=== PATIENT | female | born 1965 | race Caucasian/White ===

== ENCOUNTER 2021-09-23 03:55 | Emergency (ER) | payer BC, MEDICARE ==
[~2021-09-23] VITALS: Ht 152 cm; Wt 106.0 kg
--- OUTSIDE RECORDS SUMMARY | 2021-09-23 03:58 | XMS REPORT | Clinical Summary ---
Author Author [facility] Organization [facility] Address Unknown Phone Unavailable Care Team Providers Care Plant Taxonomist Name Role Phone Nilton Gutierrez DO PCP Allergies Not on File Medications Not on file Active Problems Problem Noted Date Syncope 01/10/2018 Social History Date Tobacco Use Types Packs/Day Years Used Never Assessed Sex Assigned at Date Recorded Not on file Last Filed Vital Signs Not on file Plan of Treatment Health Maintenance Due Date Last Done Comments Td/Tdap# 1965 Cervical Cancer Screening 1986 via Pap Smear Zoster Vaccine# (1 of 2) 2015 Influenza Vaccine (#1) 2021 Pneumococcal Vaccine: Aged Out No longer eligib le based on patient's age to Pediatrics (0 to 5 Years) complete this topic and At-Risk Patients (6 to 64 Years) Results Not on filefrom Last 3 Months Insurance Type Payer Benefit Subscriber ID Effective Phone Address Plan / Dates Group MEDICARE REPLACEMENT PLAN [facility] [id number] 2016-P [address] MED[address]ARE [id number] [place] [address] [place] [id number] 2017- [phone] [address] MEDICAID Present [address] [place] [id number] Eloise Delacruz Personal/F Self 1965 [address] [facility] [facility] (Home[facility] [place], [place] [address] Eloise Delacruz Personal/F Self 1965 [address] [facility] (Home) [place], [place] [address] NubiaEloise Archer Personal/F Self [address] [facility] (Home) [place], [place] [address] Advance Directives For more information, please contact: [phone] Patient Spouter Explanation Type Date Recorded Advance Directives and Living Will Power of 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
--- OUTSIDE RECORDS SUMMARY | 2021-09-23 03:58 | XMS REPORT | Clinical Summary ---
Author Author [facility] Organization [facility] Address Unknown Phone Unavailable Care Team Providers Care Territory Sales Executive Name Role Phone None, Pcp MD PCP Unavailable Source Comments [facility] (Labor and Delivery) documents do not appear in the [facility] Allergies Comments Active Allergy Reactions Severity Noted Date Per Pt report [place] Unknown 11/20/2017 Per Pt report Sugar Unknown 11/20/2017 Medications * Please verify current medications with patient. End Date Status Medication Sig Dispensed Refills Start Date Active amoxicillin - Take 1 tablet 14 tablet 0 clavulanate, 875-125 by mouth two 8 mg/tab, (AUGMENTIN) times a day 875-125 mg tablet Active Sitagliptin-Metformin Take 1 tablet 0 (JANUMET) 50-1,000 mg by mouth tablet Active amitriptyline (ELAVIL) 25 Take 25 mg by 0 mg tablet mouth at bedtime Active sertraline (ZOLOFT) 100 Take 100 mg 0 mg tablet by mouth once a day Active vitamin D3-folic acid once a day 0 5,000 unit- 1 mg tab Active zonisamide (ZONEGRAN) 100 Take 100 mg 0 mg capsule by mouth Active simvastatin (ZOCOR) 80 mg Take 80 mg by 0 tablet mouth at bedtime Active Fenofibrate 150 mg cap Take 145 mg 0 by mouth once a day Active verapamil (VERELAN) 180 Take 180 mg 0 mg CR capsule by mouth once a day Active glipiZIDE (GLUCOTROL) 5 Take 5 mg by 0 mg tablet mouth Active insulin glargine (LANTUS) Inject 80 0 100 unit/mL injection Units just under the skin Active montelukast (SINGULAIR) Take 10 mg by 0 10 mg tablet mouth once a day Active ascorbic acid, vitamin C, Take 500 mg 0 (VITAMIN C) 500 mg tablet by mouth Active Problems Not on file Immunizations Name Administration Dates Next Due TDAP VACCINE =>7YO IM 11/20/2017 ADSORBED Social History Date Tobacco Use Types Packs/Day Years Used Never Smoker Smokeless Tobacco: Never Used Comments Alcohol Use Standard Drinks/Week No 0 (1 standard drink = 0.6 o z pure alcohol) Sex Assigned at Date Recorded Not on file Last Filed Vital Signs Reading Time Taken Comments Vital Sign 132/79 11/20/2017 4:46 AM MST Blood Pressure 97 11/20/2017 4:46 AM MST Pulse 36.3 C (97.4 F) 11/20/2017 4:23 AM MST Temperature 12 11/20/2017 4:46 AM MST Respiratory Rate 92% 11/20/2017 4:46 AM MST Oxygen Saturation - - Inhaled Oxygen Concentration 103.9 kg (229 lb) 11/20/2017 4:23 AM MST Weight 154.9 cm (5' 1") 11/20/2017 4:23 AM MST Height 43.27 11/20/2017 4:23 AM MST Body Mass Index Plan of Treatment Health Maintenance Due Date Last Done Comments CT Colonography 1965 Cervical Cancer Screening 1965 Colonoscopy 1965 Colorectal Cancer 1965 Screening DNA-based stool test 1965 (Cologuard) HPV/Cotest 1965 Mammogram 1965 Pap Smear 1965 Sigmoidoscopy 1965 gFOBT or FIT 1965 COVID-19 Vaccine (1) 1977 Influenza Vaccine (#1) 2021 Pneumococcal Vaccine: 65+ 2030 Years (1 of 1 - PPSV23) HPV Vaccine Aged Out No longer eligible based on patient's age to complete this topic Hepatitis A Vaccine Aged Out No longer eligible based on patient's age to complete this topic Hepatitis B Vaccine Aged Out No longer eligible based on patient's age to complete this topic Hib Vaccine Aged Out No longer eligible based on patient's age to complete this topic IPV Vaccine Aged Out No longer eligible based on patient's age to complete this topic Meningococcal Vaccine Aged Out No longer eligib le based on patient's age to (MCV4) complete this topic Pneumococcal Vaccine: Aged Out No longer eligib le based on patient's age to Pediatrics (0 to 5 Years) complete this topic and At-Risk Patients (6 to 64 Years) Rotavirus Vaccine Aged Out No longer eligible based on patient's age to complete this topic Results Not on filefrom Last 3 Months Insurance Type Payer Benefit Subscriber ID Effective Phone Address Plan / Dates Group HMO [place] [id number] Effective [phone] ATTN: HMO for all ANTHEM dates BLUE CROSS AND BLUE SHIELD [address] [place] [address] [place] [id number] Effective [phone] [address] [place] for [place] [address] [place] [phone] Care Teams Start Date End Date Territory Sales Executive Relationship Specialty 11/20/17 None, Pcp, MD PCP - General Other or Unknown Specialty
[2021-09-23] MEDS ORDERED: NS IV 1000 ML 1,000 ML IV SCH (04:45)
[2021-09-23] MEDS ORDERED: ACETAMINOPHEN 325 MG TABLET PO ONE (04:45)
--- NOTE | 2021-09-23 04:45 | ED General ---
General Chief Complaint: COVID19 Suspect/Confirmed Stated Complaint: FEVER/TROUBLE BREATHING Nursing Triage Note: Pt c/o fever, shortness of breath, and "sweaty" x few days. Pt took 800mg of Advil PO at 0200 today. Pt is speaking in full sentances. Vss. Source of Information: Patient History of Present Illness Date Seen by Provider: Sep 23, 2021 Time Seen by Provider: 03:57 Initial Comments 56-year-old female presenting with complaints of fever and shortness of breath with cough. She has not felt well for the last several days. She states that she usually does not get a fever but she has since yesterday. She has been having sinus pressure on the right side and having a headache. She complains of feeling like she has sinus infection. She did vomit her medications on Wednesday night. She has a history of being a diabetic. She states that she had a negative Covid test on September 06 and has the paperwork from the walk-in clinic for that test. She has had some similar symptoms since around 04 September however in the last 2 or 3 days she has felt worse and is having the low-grade fever. Severity: Moderate Associated Systoms: No Chest Pain; Cough; No Diaphoresis; Fever/Chills, Headaches (Right-sided from the maxillary sinus back in her head), Loss of Appetite, Malaise, Nausea/Vomiting (Wednesday night x1); No Rash, No Seizure; Shortness of Air; No Syncope; Weakness Allergies and Home Medications Allergies Coded Allergies: No Known Drug Allergies (Unverified , 09/23/21) Patient Home Medication List Home Medication List Reviewed: Yes Azithromycin (Azithromycin) 500 Mg Tablet, 500 MG PO DAILY Prescribed by: JENNIFER FLOREZ on 09/23/21 0521 Fluconazole (Diflucan) 150 Mg Tablet, 150 MG PO ONCE Prescribed by: JENNIFER FLOREZ on 09/23/21 0606 Review of Systems Review of Systems Constitutional: chills; No diaphoresis; fever, weakness (general) EENTM: nose congestion, other (right maxillary sinus pressure/pain radiating back in her head); No ear discharge, No ear pain, No blurred vision, No epistaxis Respiratory: cough; No hemoptysis, No phlegm; short of breath; No stridor; wheezing Cardiovascular: No chest pain, No palpitations Gastrointestinal: see HPI Genitourinary: No dysuria, No frequency Musculoskeletal: no symptoms reported Skin: No rash Psychiatric/Neurological: Anxiety, Headache (right sided from maxillary sinus back) Past Fslqsrf-Wfovns-Sgqojo Hx Past Medical History Surgery/Hospitalization HX: Covid 19 infection with GI symptoms, Diabetes insulin dependent, hypertension Physical Exam Vital Signs Vital Signs - First Documented 09/23/21 04:34 Temp 37.7 Pulse 123 Resp 22 B/P (MAP) 129/84 (99) Pulse Ox 95 O2 Delivery Room Air Capillary Refill : Less Than 3 Seconds Height, Weight, BMI Height: '" Weight: lbs. oz. kg; 45.00 BMI Method: General Appearance: Anxious, Obese HEENT: PERRL/EOMI, Pharynx Normal Neck: Full Range of Motion, Normal Inspection, Non Tender, Supple Respiratory: Chest Non Tender, Lungs Clear, No Accessory Muscle Use, No Respiratory Distress, Decreased Breath Sounds Cardiovascular: No Murmur, Normal Peripheral Pulses, Tachycardia Gastrointestinal: Normal Bowel Sounds, No Pulsatile Mass, Non Tender, Soft Rectal: Deferred Extremity: Normal Capillary Refill, Normal Inspection, No Calf Tenderness, Pedal Edema (trace to 1+ BLE) Neurologic/Psychiatric: Alert, Oriented x3, workers compensation claims adjuster II-XII Norm as Tested Skin: Normal Color, Warm/Dry Focused Exam Lactate Level 09/23/21 04:20: Lactic Acid Level 1.25 Lactic Acid Level Laboratory Tests Test 09/23/21 04:20 Lactic Acid Level 1.25 MMOL/L (0.50-2.00) Progress/Results/Core Measures Suspected Sepsis SIRS Temperature: Pulse: 123 Respiratory Rate: 22 Laboratory Tests 09/23/21 04:20: White Blood Count 10.5 Blood Pressure 129 /84 Mean: 99 09/23/21 04:20: Lactic Acid Level 1.25 Laboratory Tests 09/23/21 04:20: Creatinine 1.14, INR Comment 1.0, Platelet Count 202, Total Bilirubin 0.3 Results/Orders Lab Results Laboratory Tests Test 09/23/21 04:10 09/23/21 04:20 09/23/21 04:23 09/23/21 04:31 Range/Units Influenza Type A Antigen NEGATIVE NEGATIVE Influenza Type B Antigen NEGATIVE NEGATIVE White Blood Count 10.5 4.3-11.0 10^3/uL Red Blood Count 3.69 L 3.80-5.11 10^6/uL Hemoglobin 10.4 L 11.5-16.0 g/dL Hematocrit 32 L 35-52 % Mean Corpuscular Volume 88 80-99 fL Mean Corpuscular Hemoglobin 28 25-34 pg Mean Corpuscular Hemoglobin Concent 32 32-36 g/dL Red Cell Distribution Width 13.8 10.0-14.5 % Platelet Count 202 130-400 10^3/uL Mean Platelet Volume 10.6 9.0-12.2 fL Immature Granulocyte % (Auto) 0 % Neutrophils (%) (Auto) 82 H 42-75 % Lymphocytes (%) (Auto) 10 L 12-44 % Monocytes (%) (Auto) 7 0-12 % Eosinophils (%) (Auto) 1 0-10 % Basophils (%) (Auto) 0 0-10 % Neutrophils # (Auto) 8.6 H 1.8-7.8 X 10^3 Lymphocytes # (Auto) 1.0 1.0-4.0 X 10^3 Monocytes # (Auto) 0.7 0.0-1.0 X 10^3 Eosinophils # (Auto) 0.1 0.0-0.3 10^3/uL Basophils # (Auto) 0.0 0.0-0.1 10^3/uL Immature Granulocyte # (Auto) 0.0 0.0-0.1 10^3/uL Neutrophils % (Manual) % Prothrombin Time 13.2 12.2-14.7 SEC INR Comment 1.0 0.8-1.4 Activated Partial Thromboplast Time 27 24-35 SEC D-Dimer 0.43 0.00-0.49 UG/ML Sodium Level 135 135-145 MMOL/L Potassium Level 4.2 3.6-5.0 MMOL/L Chloride Level 99 98-107 MMOL/L Carbon Dioxide Level 20 L 21-32 MMOL/L Anion Gap 16 H 5-14 MMOL/L Blood Urea Nitrogen 18 7-18 MG/DL Creatinine 1.14 0.60-1.30 MG/DL Estimat Glomerular Filtration Rate 49 BUN/Creatinine Ratio 16 Glucose Level 275 H 70-105 MG/DL Lactic Acid Level 1.25 0.50-2.00 MMOL/L Calcium Level 9.5 8.5-10.1 MG/DL Corrected Calcium 9.3 8.5-10.1 MG/DL Total Bilirubin 0.3 0.1-1.0 MG/DL Aspartate Amino Transf (AST/SGOT) 12 5-34 U/L Alanine Aminotransferase (ALT/SGPT) 11 0-55 U/L Alkaline Phosphatase 75 40-136 U/L Troponin I < 0.30 <0.30 NG/ML C-Reactive Protein 4.76 H <0.50 MG/DL Total Protein 7.5 6.4-8.2 GM/DL Albumin 4.2 3.2-4.5 GM/DL Smear Scan Glucometer 243 H 70-110 MG/DL Blood Gas Puncture Site RT. RADIAL Blood Gas Patient Temperature 37.0 Arterial Blood pH 7.41 7.37-7.43 Arterial Blood Partial Pressure CO2 39 35-45 MMHG Arterial Blood Partial Pressure O2 70 L 79-93 MMHG Arterial Blood HCO3 25 23-27 MMOL/L Arterial Blood Total CO2 25.9 21.0-31.0 MMOL/L Arterial Blood Oxygen Saturation 94 94-100 % Arterial Blood Base Excess 0.1 -2.5-2.5 MMOL/L Tim Test YES-POS Blood Gas Ventilator Setting NO Blood Gas Inspired Oxygen ROOM AIR My Orders Orders - JENNIFER FLOREZ MD Monitor-Rhythm Ecg Trace Only (09/23/21 04:33) Ed Iv/Invasive Line Start (09/23/21 04:33) Cbc With Automated Diff (09/23/21 04:33) Comprehensive Metabolic Panel (09/23/21 04:33) Crp Fs (09/23/21 04:33) Troponin I Fs (09/23/21 04:33) Protime With Inr (09/23/21 04:33) Partial Thromboplastin Time (09/23/21 04:33) Ekg Tracing (09/23/21 04:33) Arterial Blood Gas (09/23/21 04:33) Ns Iv 1000 Ml (Sodium Chloride 0.9%) (09/23/21 04:45) Acetaminophen Tablet/Caplet (Tylenol T (09/23/21 04:45) Blood Culture (09/23/21 04:33) Chest 1 View Ap/Pa Only (09/23/21 04:33) Ct Head/Maxillofacial Wo (09/23/21 04:33) Influenza A & B Antigens (09/23/21 04:33) Covid 19 Inhouse Test (09/23/21 04:33) Lactic Acid Analyzer (09/23/21 04:33) Fibrin Degradation Products (09/23/21 04:33) Manual Differential (09/23/21 04:20) Medications Given in ED Current Medications Medications Dose Ordered Sig/Francia Route Start Time Stop Time Status Last Admin Dose Admin Acetaminophen 650 mg ONCE ONCE PO 09/23/21 04:45 09/23/21 04:46 DC 09/23/21 04:49 650 MG Vital Signs/I&O 09/23/21 09/23/21 04:34 06:10 Temp 37.7 37.0 Pulse 123 79 Resp 22 15 B/P (MAP) 129/84 (99) 132/70 Pulse Ox 95 96 O2 Delivery Room Air Room Air Capillary Refill : Less Than 3 Seconds Blood Pressure Mean: 99 Progress Note #1: Progress Note With her tachycardic and having a low-grade fever as well as complaint of sinus and upper respiratory infection will need to obtain blood work including blood cultures and lactic acid. Ordered influenza and Covid swab. Check basic labs including cardiac enzymes. CT scan of her head and sinuses to look for infection. Give IV fluids for hydration to help with her tachycardia. Acetaminophen to help with her low-grade fever. Progress Note #2: Progress Note Labs showed no significant elevation of her white blood cell count. Her chemistry panel showed the elevated glucose but her electrolytes otherwise appeared stable. Her lactic acid was not elevated at 1.25. Her influenza swab was negative. Her CT scan of the head and sinuses showed right ethmoid sinus mucosal thickening for some sinusitis. Her chest x-ray did not show any definite infiltrate. Patient was having improved heart rate and symptomatically felt better as she was receiving treatment in the ED. Counseled on results and findings and advised that we would treat for sinusitis with Zithromax and have her take possibly extra insulin if needed for elevated sugar while she was fighting the infection. Have her check with her regular provider over the phone about this. Counseled to quarantine until she had results on her Covid swab. This should be back later within the next 12 to 24 hours. Counseled on follow-up and return precautions. ECG Initial ECG Impression Date: Sep 23, 2021 Initial ECG Impression Time: 04:42 Initial ECG Rate: 104 Initial ECG Rhythm: S.Tach Initial ECG Comparisson: No Previous ECG Available Comment Sinus tachycardia with a heart rate of 104 bpm. MI interval 146 ms. QT interval 356 ms with a QTc interval 469 ms. There is no acute ST elevation. There is no prior tracing available for comparison. Diagnostic Imaging Diagonstic Imaging: Xray Plain Films/CT/US/NM/MRI: chest Comments [facility] [place] NAME: HUMBERTO RABAGO [facility] REC#: [id number] PT STATUS: DEP ER : 1965 PHYSICIAN: JENNIFER FLOREZ MD ADMIT DATE: 09/23/21/ER FS Signed Date of Exam:09/23/21 CHEST 1 VIEW AP/PA ONLY HISTORY: Cough, shortness of breath, fever. TECHNIQUE: Frontal view of the chest. COMPARISON: None FINDINGS: Lung volumes are normal. No consolidation is seen. Increased density at the left upper lung is thought to represent overlapping bony structures. The cardiac silhouette is normal in size. There is no pleural effusion or pneumothorax. IMPRESSION: 1. No acute pulmonary abnormality seen. Dictated by: Dictated on workstation # [id number] Dict: 09/23/21527 Trans: 09/23/21628 [id number] Interpreted by: ZOHREH AGOSTO MD Electronically signed by: ZOHREH AGOSTO MD 09/23/21628 Reviewed: Reviewed by Al Diagonstic Imaging: CT Plain Films/CT/US/NM/MRI: facial bones, head Comments [facility] [place] NAME: HUMBERTO RABAGO [facility] REC#: [id number] PT STATUS: DEP ER : 1965 PHYSICIAN: JENNIFER FLOREZ MD ADMIT DATE: 09/23/21/ER FS Signed Date of Exam:09/23/21 CT HEAD/MAXILLOFACIAL WO PROCEDURE: CT head and maxillofacial without contrast. TECHNIQUE: Multiple contiguous axial images were obtained through the head and facial bones without the use of intravenous contrast. Auto Exposure Controls were utilized during the CT exam to meet ALARA standards for radiation dose reduction. INDICATION: Right-sided headache, fever, sinus pressure. COMPARISON: None FINDINGS: CT HEAD: The ventricles and cortical sulci are age-appropriate. There is no midline shift or mass effect. No acute intracranial hemorrhage is seen. There is no CT evidence of acute territorial ischemia. The calvarium appears intact. CT face: The pterygoid plates are intact. The zygomatic arches are intact. The mandible appears intact. The maxillary sinuses demonstrate no fluid levels or significant mucosal thickening. There is mild mucosal thickening in the anterior right ethmoid air cells. The frontal and sphenoid sinuses are clear. The mastoid air cells appear to be clear. The globes are intact. The orbits are unremarkable otherwise. IMPRESSION: 1. Mucosal thickening/fluid in the anterior right ethmoid air cells. Otherwise paranasal sinuses appear clear. 2. No acute intracranial hemorrhage or CT evidence of acute territorial ischemia. Dictated by: Dictated on workstation # [id number] Dict: 09/23/21523 Trans: 09/23/21629 [facility] [id number] Interpreted by: ZOHREH AGOSTO MD Electronically signed by: ZOHREH AGOSTO MD 09/23/21629 Reviewed: Reviewed by Me Departure Impression Primary Impression: Acute ethmoidal sinusitis Qualified Codes: J01.20 - Acute ethmoidal sinusitis, unspecified Additional Impressions: Fever in adult Upper respiratory infection with cough and congestion Sinus drainage Dehydration Hyperglycemia Disposition: 01 HOME, SELF-CARE Condition: Improved Departure-Patient Inst. Decision time for Depature: 05:47 Referrals: NO,LOCAL PHYSICIAN (PCP/Family) Primary Care Physician Patient Instructions: High Blood Sugar, Adult ED, Upper Respiratory Infection ED, Fever, Adult ED, Dehydration, Adult ED, Sinusitis, Adult ED Add. Discharge Instructions: Take the full course of your biotics to help treat for sinus infection. Use acetaminophen or ibuprofen if needed to help with fevers over 100.5 Fahrenheit Make sure you are drinking plenty of fluids and stay well-hydrated. Consider taking Mucinex to help thin out any secretions and congestion. Your sugars will run higher while you are fighting an infection so you may have to increase your insulin dose over the next few days while the infection is be ing treated with the antibiotics. You can call your regular doctor during the day to help get instructions and direction on how they would like you to address elevated sugars while fighting the sinusitis. You should quarantine and stay isolated until the results of the Covid tests are back later today. As the test from the emergency department here is not a rapid test and has to be sent out, it can take up to 24 hours to get the results. All discharge instructions reviewed with patient and/or family. Voiced understanding. Scripts Fluconazole (Diflucan) 150 Mg Tablet 150 MG PO ONCE for 1 Day, #1 TAB 1 Refill Take for yeast vaginitis at the end of your course of antibiotics. Prov: JENNIFER FLOREZ MD 09/23/21 Azithromycin (Azithromycin) 500 Mg Tablet 500 MG PO DAILY for sinusitis for 5 Days, #5 TAB 0 Refills Prov: JENNIFER FLOREZ MD 09/23/21 JENNIFER FLOREZ MD Sep 23, 2021 04:45
[2021-09-23 05:00] LABS: PROTHROMBIN TIME PATIENT 13.2 SEC (12.2-14.7)
[2021-09-23 05:00] LABS: ABG BASE EXCESS 0.1 MMOL/L (-2.5-2.5); ABG OXYGEN SATURATION 94 % (94-100); ABG PCO2 39 MMHG (35-45); ABG PH 7.41 (7.37-7.43); ABG PO2 70 MMHG (79-93); ABG TCO2 25.9 MMOL/L (21.0-31.0); ALLENS TEST YES-POS
[2021-09-23 05:01] LABS: INSPIRED O2 ROOM AIR; VENTILATOR NO
[2021-09-23 05:06] LABS: HEMATOCRIT 32 % (35-52); HEMOGLOBIN 10.4 g/dL (11.5-16.0); MEAN CORPUSCULAR HEMOGLOBIN 28 pg (25-34); MEAN CORPUSCULAR HGB CONC 32 g/dL (32-36); MEAN CORPUSCULAR VOLUME 88 fL (80-99); WHITE BLOOD COUNT 10.5 10^3/uL (4.3-11.0)
[2021-09-23 05:07] LABS: BASOPHILS % (AUTO) 0 % (0-10); EOSINOPHILS # (AUTO) 0.1 10^3/uL (0.0-0.3); EOSINOPHILS % (AUTO) 1 % (0-10); LYMPHOCYTES % (AUTO) 10 % (12-44); MEAN PLATELET VOLUME 10.6 fL (9.0-12.2); MONOCYTES # (AUTO) 0.7 X 10^3 (0.0-1.0); MONOCYTES % (AUTO) 7 % (0-12); NEUTROPHILS # (AUTO) 8.6 X 10^3 (1.8-7.8); NEUTROPHILS % (AUTO) 82 % (42-75); PLATELET COUNT 202 10^3/uL (130-400)
[2021-09-23 05:22] LABS: ALANINE AMINOTRANSFERASE 11 U/L (0-55); ALKALINE PHOSPHATASE 75 U/L (40-136); BILIRUBIN,TOTAL 0.3 MG/DL (0.1-1.0); BUN/CREATININE RATIO 16; CALCIUM 9.5 MG/DL (8.5-10.1); CARBON DIOXIDE 20 MMOL/L (21-32); CHLORIDE 99 MMOL/L (98-107); CREATININE SERUM 1.14 MG/DL (0.60-1.30); GFR ESTIMATED 49; GLUCOSE 275 MG/DL (70-105); POTASSIUM 4.2 MMOL/L (3.6-5.0); SODIUM 135 MMOL/L (135-145); TOTAL PROTEIN 7.5 GM/DL (6.4-8.2)
[2021-09-23 05:23] LABS: ALBUMIN 4.2 GM/DL (3.2-4.5)
--- NOTE | 2021-09-23 05:30 | Diagnostic Imaging Report ---
PROCEDURE: CT head and maxillofacial without contrast. TECHNIQUE: Multiple contiguous axial images were obtained through the head and facial bones without the use of intravenous contrast. Auto Exposure Controls were utilized during the CT exam to meet ALARA standards for radiation dose reduction. INDICATION: Right-sided headache, fever, sinus pressure. COMPARISON: None FINDINGS: CT HEAD: The ventricles and cortical sulci are age-appropriate. There is no midline shift or mass effect. No acute intracranial hemorrhage is seen. There is no CT evidence of acute territorial ischemia. The calvarium appears intact. CT face: The pterygoid plates are intact. The zygomatic arches are intact. The mandible appears intact. The maxillary sinuses demonstrate no fluid levels or significant mucosal thickening. There is mild mucosal thickening in the anterior right ethmoid air cells. The frontal and sphenoid sinuses are clear. The mastoid air cells appear to be clear. The globes are intact. The orbits are unremarkable otherwise. IMPRESSION: 1. Mucosal thickening/fluid in the anterior right ethmoid air cells. Otherwise paranasal sinuses appear clear. 2. No acute intracranial hemorrhage or CT evidence of acute territorial ischemia. Dictated by: Dictated on workstation # [id number]
--- NOTE | 2021-09-23 05:35 | Diagnostic Imaging Report ---
HISTORY: Cough, shortness of breath, fever. TECHNIQUE: Frontal view of the chest. COMPARISON: None FINDINGS: Lung volumes are normal. No consolidation is seen. Increased density at the left upper lung is thought to represent overlapping bony structures. The cardiac silhouette is normal in size. There is no pleural effusion or pneumothorax. IMPRESSION: 1. No acute pulmonary abnormality seen. Dictated by: Dictated on workstation # [id number]
[2021-09-23] MEDS ORDERED: AZIT500T9 PO (05:47)
[2021-09-23] MEDS ORDERED: FLUC150T PO (06:06)
[2021-09-23 06:10] VITALS: BP 132/70
== END 2021-09-23 06:10 | disposition home or self-care (01) ==
LOC: ER FS 03:55
DX: J01.20 Acute ethmoidal sinusitis, unspecified (principal); J06.9 Acute upper respiratory infection, unspecified; R09.81 Nasal congestion; R09.82 Postnasal drip; E86.0 Dehydration; E66.9 Obesity, unspecified; E11.65 Type 2 diabetes mellitus with hyperglycemia; I10 Essential (primary) hypertension; Z20.822 Contact with and (suspected) exposure to COVID-19; Z68.42 Body mass index [BMI] 45.0-49.9, adult
CPT/HCPCS: 36415; 70450; 70486; 71045; 80053; 82805; 82947; 83605; 84484; 85007; 85025; 85027; 85379; 85610; 85730; 86141; 87040; 87636; 87804; 93005; 93041